=== PATIENT | female | born 1980 | race African-American/Black ===

== ENCOUNTER 2018-06-24 19:56 | Emergency (ER) | payer OTHER ==
--- NOTE | 2018-06-24 20:00 | PDOC ---
History of Present Illness - History of Present Illness Initial Comments: This patient is a 37 year old female with no significant PMHx, who presents to the ER s/p left ankle injury. Patient states that she was walking and rolled her left ankle. She is also complains of left knee pain. Allergies: penicillin ROS General: No fevers or chills, no weakness, no weight loss HEENT: No change in vision. No sore throat, No ear pain Cardiovascular: No chest pain or shortness of breath Respiratory:No cough, or wheezing. Gastrointestinal: No nausea, vomiting, diarrhea or constipation, No rectal bleeding Genitourinary: No dysuria, hematuria, or frequency Musculoskeletal: +left ankle and knee pain. Neurologic: No headache, vertigo, dizziness or loss of consciousness Psychiatric: No depression Skin: No rashes or easy bruising Endocrine: No increased thirst or abnormal weight change Allergic: No skin or latex allergy All other systems reviewed and normal PE GENERAL: The patient is awake, alert, and fully oriented, in no acute distress. HEAD: Normal with no signs of trauma. EYES: Pupils equal, round and reactive to light, extraocular movements intact, sclera anicteric, conjunctiva clear. EXTREMITIES: Left ankle tenderness and swelling to lateral malleolus and 5th metatarsal. Neurovascularly intact, mild tenderness to medial aspect of knee. Decreased ROM secondary to pain. NEUROLOGICAL: Normal speech, patient arrived in wheelchair. PSYCH: Normal mood, normal affect. SKIN: Warm, Dry, normal turgor, no rashes or lesions noted. 06/24/18 20:17 <Mey Muniz - Last Filed: 06/24/18 20:17> - General History Source: Patient Exam Limitations: No Limitations - History of Present Illness Initial Comments: 06/24/18 20:16 A portion of this note was documented by scribe services under my direction. I have reviewed the details of the note, within reason, and agree with the documentation. The case summary and management plan written by me. Assessment and plan: This is a 37-year-old female who twisted her ankle while ambulating. Patient had some tenderness and swelling over the lateral malleolus but also had some mild tenderness of the medial aspect of the knee. X-rays were ordered of the ankle foot and knee. 06/24/18 20:50 X-rays left foot, left ankle and left knee all negative for any acute pathology. Patient discharged home patient Peter wrap and given Aircast in addition to crutches. <Brayan Mancera I - Last Filed: 06/24/18 20:51> - General Chief Complaint: Pain, Acute Stated Complaint: TWISTED LEFT ANKLE Time Seen by Provider: 06/24/18 19:58 Past History <Mey Muniz - Last Filed: 06/24/18 20:17> <Brayan Mancera I - Last Filed: 06/24/18 20:51> - Past Medical History Allergies/Adverse Reactions: Allergies Allergy/AdvReac Type Severity Reaction Status Date / Time Penicillins Allergy Verified 06/24/18 19:57 Home Medications: Ambulatory Orders NK [No Known Home Medication] 06/24/18 Review of Systems - Review of Systems Comments:: see HPI <Mey Muniz - Last Filed: 06/24/18 20:17> *Physical Exam - Vital Signs Last Vital Signs Temp Pulse Resp BP Pulse Ox 98.5 F 64 18 124/81 100 06/24/18 19:58 06/24/18 19:58 06/24/18 19:58 06/24/18 19:58 06/24/18 19:58 - Physical Exam Comments: see HPI <Mey Muniz - Last Filed: 06/24/18 20:17> ED Treatment Course - Medications Given in the ED: ED Medications Discontinued Medications Generic Name Dose Route Start Last Admin Trade Name Freq PRN Reason Stop Dose Admin Ibuprofen 600 mg 06/24/18 20:02 06/24/18 20:02 Motrin - PO 06/24/18 20:03 600 mg ONCE ONE Administration <Mey Muniz - Last Filed: 06/24/18 20:17> *DC/Admit/Observation/Transfer - Attestations Scribe Attestion: 06/24/18 20:09 Documentation prepared by Mey Muniz, acting as medical intern for Brayan Mancera MD. <Mey Muniz - Last Filed: 06/24/18 20:17> - Discharge Dispostion Decision to Admit order: No <Brayan Mancera I - Last Filed: 06/24/18 20:51> Diagnosis at time of Disposition: Left ankle sprain Qualifiers: Encounter type: initial encounter Involved ligament of ankle: unspecified ligament Qualified Code(s): S93.402A - Sprain of unspecified ligament of left ankle, initial encounter - Discharge Dispostion Disposition: HOME Condition at time of disposition: Stable - Patient Instructions Additional Instructions: Tylenol or Motrin as needed for pain. You can bear weight as tolerated as it is not fractured or broken. Return to the emergency department immediately with ANY new, persistent or worsening symptoms. Continue any medications as previously prescribed by your physician. You should follow up with your primary doctor as soon as possible regarding today's emergency department visit. . Please make sure your doctor reviews the results of your emergency evaluation. Thank you for coming to the Emergency Department today for your care. It was a pleasure to see you today. Please note that your evaluation is INCOMPLETE until you follow-up with your doctor.
[2018-06-24 20:02] VITALS: BP 124/81; PULSE 64; TEMP 98.5; BMI 30.9
[2018-06-24] MEDS ORDERED: IBUPROFEN 600 MG TABLET (FP) PO ONE ×2 (20:02→20:03)
== END 2018-06-24 20:55 | disposition home or self-care (01) ==
LOC: FER 19:56
DX: S93.402A Sprain of unspecified ligament of left ankle, initial encounter (principal); X58.XXXA Exposure to other specified factors, initial encounter; Y93.89 Activity, other specified; Y92.9 Unspecified place or not applicable
CPT/HCPCS: 73560-TC-LT-FY; 73610-TC-LT-FY; 73630-TC-LT; 99281-25